=== PATIENT | male | born 1975 | race American Indian/Alaskan Native ===

== ENCOUNTER 2019-11-26 20:02 | Emergency (ER) | payer SELFPAY ==
[2019-11-26 20:11] VITALS: BP 160/107
--- NOTE | 2019-11-26 20:45 | Emergency Department Report ---
ED ENT HPI - General Chief complaint: Earache Stated complaint: LEFT EAR PAIN Time Seen by Provider: 11/26/19 20:28 Source: patient Mode of arrival: Ambulatory Limitations: Physical Limitation - History of Present Illness Initial comments: 44-year-old F Brazilian male presenting department complaining of a 1 to 2-week history of left-sided ear pain with no reported discharge reports no fevers chills or sweats no chest pain or palpitation no odynophagia or dysphagia no trauma no change in hearing. He reports having no earwax MD complaint: ear pain -: Gradual Location: L ear Severity: mild Quality: aching Consistency: constant Improves with: none Worsens with: none - Related Data Allergies Allergy/AdvReac Type Severity Reaction Status Date / Time No Known Allergies Allergy Verified 11/26/19 20:09 ED Dental HPI - General Chief complaint: Earache Stated complaint: LEFT EAR PAIN Time Seen by Provider: 11/26/19 20:28 Source: patient Mode of arrival: Ambulatory Limitations: Physical Limitation - Related Data Allergies Allergy/AdvReac Type Severity Reaction Status Date / Time No Known Allergies Allergy Verified 11/26/19 20:09 ED Review of Systems ROS: Stated complaint: LEFT EAR PAIN Other details as noted in HPI Comment: All other systems reviewed and negative ED Past Medical Hx - Past Medical History Previous Medical History?: No - Surgical History Past Surgical History?: No - Social History Smoking Status: Never Smoker Substance Use Type: None ED Physical Exam - General Limitations: Physical Limitation General appearance: alert, in no apparent distress - Head Head exam: Present: atraumatic, normocephalic - Eye Eye exam: Present: normal appearance - ENT ENT exam: Present: mucous membranes moist, other (Some tragal tenderness to the left area with mild swelling there is some increased earwax but able to visualize TM which is intact) - Neck Neck exam: Present: full ROM. Absent: lymphadenopathy - Respiratory Respiratory exam: Present: normal lung sounds bilaterally ED Course Vital Signs 11/26/19 20:08 Temperature 98.3 F Pulse Rate 73 Respiratory 18 Rate Blood Pressure 160/107 O2 Sat by Pulse 98 Oximetry Critical care attestation.: If time is entered above; I have spent that time in minutes in the direct care of this critically ill patient, excluding procedure time. ED Disposition Clinical Impression: Otalgia Disposition: MED SCREENING EXAM-LEFT Is pt being admited?: No Does the pt Need Aspirin: No Condition: Stable Instructions: Earache (ED) Referrals: PRIMARY CARE, [Primary Care Provider] - 3-5 Days
== END 2019-11-26 20:45 | disposition left against medical advice (07) ==
LOC: ED 20:02
DX: H92.02 Otalgia, left ear (principal)
CPT/HCPCS: 99282